=== PATIENT | female | born 1980 | race Caucasian/White ===

== ENCOUNTER 2019-02-07 22:23 | Emergency (ER) | payer OTHER ==
[~2019-02-07] VITALS: Ht 157.5 cm; Wt 77.1 kg
[~2019-02-07 22:23] MED LIST: ALBIPROI INH; ALBU90OI INH; AMOX500 PO; Augmentin 875-1 EACH PO; BIRTH CONTROL PILLS; HYDACE5 PO; MAGCIT300 PO; MULVITMINE; NAPR500 PO; PENVK500 PO; PRED20 PO; PROM25 PO; Percocet 5-3251 EACH PO
[2019-02-07 23:19] LABS: BASOPHILS ABSOLUTE AUTO 0.05 K/mm3 (0.00-0.23); BASOPHILS PERCENT AUTO 1 % (0-2); EOSINOPHILS ABSOLUTE AUTO 0.12 K/mm3 (0.00-0.68); EOSINOPHILS PERCENT AUTO 2 % (0-6); Hematocrit 42.1 % (33.0-51.0); IMMATURE GRAN ABSOLUTE AUTO 0.02 K/mm3 (0.00-0.10); IMMATURE GRAN PERCENT AUTO 0 % (0-1); LYMPHOCYTES ABSOLUTE AUTO 2.57 K/mm3 (0.84-5.20); LYMPHOCYTES PERCENT AUTO 36 % (21-46); MONOCYTES ABSOLUTE AUTO 0.61 K/mm3 (0.16-1.47); MONOCYTES PERCENT AUTO 9 % (4-13); Mean Corpuscular HGB 29.7 pg (26.0-34.0); Mean Corpuscular HGB Conc 33.3 g/dL (31.5-36.5); Mean Corpuscular Volume 89 fL (80-100); Mean Platelet Volume 10.5 fL (9.1-12.4); NEUTROPHILS ABSOLUTE AUTO 3.76 K/mm3 (1.96-9.15); NEUTROPHILS PERCENT AUTO 53 % (41-73); Platelet Count 281 K/mm3 (150-400); RDW Standard Deviation 39.7 fL (35.1-46.3); Red Blood Cell Count 4.71 M/mm3 (3.80-5.20); White Blood Cell Count 7.13 K/mm3 (4.00-11.30)
[2019-02-07 23:37] LABS: Alanine Aminotransfer (ALT/SGP 38 U/L (12-78); Albumin, Blood 3.5 g/dL (3.4-5.0); Alk Phos 60 U/L (50-136); Anion Gap 6 mmol/L (6-16); Aspartate Aminotrans (AST/SGOT 16 U/L (12-37); Bilirubin, Total 0.3 mg/dL (0.1-1.0); Blood Urea Nitrogen 12 mg/dL (8-24); Bun/Creatinine Ratio 19.9 (12.0-20.0); CO2, Blood 26 mmol/L (21-32); Calcium, Blood 8.7 mg/dL (8.5-10.1); Chloride, Blood 107 mmol/L (98-108); Globulin, Blood 3.4 g/dL (2.2-4.0); Glomerular Filtration Rate >60 (60-); Glucose, Blood 100 mg/dL (70-99); Potassium, Blood 3.8 mmol/L (3.5-5.5); Sodium, Blood 139 mmol/L (136-145); Total Protein, Blood 6.9 g/dL (6.4-8.2)
[2019-02-07 23:56] LABS: Source, Urine Clean Catch
[2019-02-08 00:03] LABS: Bilirubin, Urine Neg (Neg); Blood, Urine Neg (Neg); Glucose Qualitative, Urine Neg (Neg); Ketones, Urine Neg (Neg); Leukocyte Esterase, Urine Neg (Neg); Nitrite, Urine Neg (Neg); Protein, Urine Neg (Neg); Specific Gravity, Urine 1.015 (1.003-1.022); Urobilinogen, Urine NORM (Normal)
[2019-02-08 00:08] LABS: Appearance, Urine Hazy (Clear); Color, Urine Yellow (P-Yellow)
[2019-02-08 00:09] LABS: Amorphous Light (0-Heavy); Bacteria Mod /hpf; Red Blood Cells, Urine 0-2 /hpf (0-2); Squamous Epithelial Cells Rare /hpf (Few); White Blood Cells, Urine 0-2 /hpf (0-5)
[2019-02-08] MEDS ORDERED: IBUP800 PO (00:29)
[2019-02-08] MEDS ORDERED: Percocet 7.5-31 EACH PO (00:29)
== END 2019-02-08 02:15 | disposition home or self-care (01) ==
LOC: ER 22:23
PROVIDERS: Emergency Medicine
DX: K40.90 Unilateral inguinal hernia, without obstruction or gangrene, not specified as recurrent (principal); F17.200 Nicotine dependence, unspecified, uncomplicated; Z88.8 Allergy status to other drugs, medicaments and biological substances
CPT/HCPCS: 36415; 74176; 80053; 81001; 83690; 85025; 87086; 96374; 96375; 99284-25; A9270; J1170; J1885; J2405

== ENCOUNTER → 2019-04-10 | Outpatient (CLI) | payer OTHER ==
[~2019-04-10] MED LIST changes: +Endocet 7.5-321 EACH PO; +IBUP800 PO; +Percocet 7.5-31 EACH PO; +Vitamin B Comple1 EA PO
[2019-04-21 16:06] LABS: ANABASINE <1 ng/mL (.); COTININE <10 ng/mL (.); NICOTINE <10 ng/mL (.)
== END | disposition home or self-care (01) ==
LOC: OLS 16:24 → LAB SHORT 16:24
PROVIDERS: Surgery
DX: Z01.812 Encounter for preprocedural laboratory examination (principal); F17.200 Nicotine dependence, unspecified, uncomplicated
CPT/HCPCS: G0480

== ENCOUNTER 2019-05-30 05:49 | Day surgery (SDC) | payer OTHER ==
[~2019-05-30] VITALS: Ht 160 cm; Wt 81.7 kg
--- NOTE | 2019-05-30 06:47 | NUR ---
History, Chart, Medications and Allergies reviewed before start of procedure. Patient confirms NPO status and agrees with scheduled surgery. Lungs clear T/O to Auscultation. Patient States Post-Procedure ride home has been arranged. Pre-Op teaching done. Pt verbalizes understanding. Patient reports completing Chlorhexadine shower X2 prior to admission to hospital. PATIENT REMOVED MUCH OF HER JEWELRY SHE COULD AND SIGNED A REFUSAL FORM FOR THE REMAINING PIERCINGS. NO DENTURES,GLASSES, CONTACTS, OR HEARING DEVICES PRESENT AT THE TIME OF ADMIT. 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
--- NOTE | 2019-05-30 12:10 | NUR ---
Patient up to Ambulate independently. Gait steady. Discharge instructions reviewed with patient. Patient verbalizes understanding. Copy given to patient to take home. Patient States Post-Procedure ride home has been arranged. Discharged via wheelchair to private car for ride home.
== END 2019-05-30 12:13 | disposition home or self-care (01) ==
LOC: ORSCMMR 05:49 → ORD 07:30 → ORSCMMR 07:30
PROVIDERS: Surgery
PROC: 0YU54JZ Supplement Right Inguinal Region with Synthetic Substitute, Percutaneous Endoscopic Approach (ICD-10-PCS; principal; 2019-05-30 07:30)
PROC: 8E0W4CZ Robotic Assisted Procedure of Trunk Region, Percutaneous Endoscopic Approach (ICD-10-PCS; principal; 2019-05-30 07:30)
DX: K40.90 Unilateral inguinal hernia, without obstruction or gangrene, not specified as recurrent (principal); I10 Essential (primary) hypertension
CPT/HCPCS: 49650; S2900; A9270-GY; C1781; J0690; J1100; J2250; J2405; J2704; J3010; J7120

== ENCOUNTER 2023-09-13 06:43 | Day surgery (SDC) | payer BC, OTHER ==
[~2023-09-13] VITALS: Ht 157.5 cm; Wt 69.3 kg
[2023-09-13] MEDS ORDERED: Lidocaine HCl 2% 10 ML SDA ONE (06:53)
[2023-09-13] MEDS ORDERED: NS 50 ML IV ONE (07:11)
[2023-09-13] MEDS ORDERED: Lactated Ringer's 1,000 ML IV ONE ×2 (07:11→07:27)
[2023-09-13] MEDS ORDERED: CeFAZolin Sodium 2,000 MG VIAL ONE (07:11)
[2023-09-13] MEDS ORDERED: IBUP400 (07:16)
[2023-09-13] MEDS ORDERED: propofoL 20 ML IV ONE (07:41)
[2023-09-13] MEDS ORDERED: Dexamethasone Sod Phos 10 MG/ML 1ML VIAL ONE (07:43)
[2023-09-13] MEDS ORDERED: Ondansetron HCl 2 MG / ML 2ML Vial ONE (07:43)
[2023-09-13] MEDS ORDERED: FentaNYL Citrate 50 MCG/ML 2 ML Injection ONE (08:14)
[2023-09-13 08:41] VITALS: BP 119/80
--- NOTE | 2023-09-13 09:12 | NUR ---
09/13/23 0912 BRUNO MAGUIRE PT WAITING FOR RIDE. PT IN SDU 1 TO WAIT.
== END 2023-09-13 09:13 | disposition home or self-care (01) ==
LOC: ORSCSDS 06:43
PROVIDERS: Orthopaedic Surgery
PROC: 01N54ZZ Release Median Nerve, Percutaneous Endoscopic Approach (ICD-10-PCS; principal; 2023-09-13 08:00)
DX: G56.03 Carpal tunnel syndrome, bilateral upper limbs (principal); I73.00 Raynaud's syndrome without gangrene; F17.210 Nicotine dependence, cigarettes, uncomplicated; I10 Essential (primary) hypertension; E78.5 Hyperlipidemia, unspecified; I25.2 Old myocardial infarction
CPT/HCPCS: J0690; J1100; J2001; J2405; J2704; J3010; J7120

== ENCOUNTER 2024-09-29 17:13 | Emergency (ER) | payer BC, OTHER ==
[~2024-09-29] VITALS: Ht 157.5 cm; Wt 89.0 kg
[~2024-09-29 17:13] MED LIST changes: +IBUP400
[2024-09-29 17:16] VITALS: BP 146/97
[2024-09-29] MEDS ORDERED: DOXAZOSIN MESYLA1 M2 PO (17:55)
[2024-09-29] MEDS ORDERED: LOSARTAN POTASS25 M2 PO (17:55)
[2024-09-29] MEDS ORDERED: MOBIC15 MG PO (17:56)
[2024-09-29] MEDS ORDERED: EUTHYROX75 MC1 PO (17:56)
[2024-09-29] MEDS ORDERED: Cephalexin Monohydrate 500 MG Cap PO ONE (19:10)
[2024-09-29] MEDS ORDERED: CEPH500 PO (19:19)
== END 2024-09-29 19:10 | disposition home or self-care (01) ==
LOC: ER 17:13
DX: M71.21 Synovial cyst of popliteal space [Baker], right knee (principal); J45.909 Unspecified asthma, uncomplicated; F17.200 Nicotine dependence, unspecified, uncomplicated; Z91.030 Bee allergy status; Z88.8 Allergy status to other drugs, medicaments and biological substances; Z79.1 Long term (current) use of non-steroidal anti-inflammatories (NSAID); Z79.890 Hormone replacement therapy; Z79.899 Other long term (current) drug therapy
CPT/HCPCS: 93971; 99283-25; A9270